=== PATIENT | male | born 1990 | race Caucasian/White ===

== ENCOUNTER 2017-03-03 16:12 | Emergency (ER) | payer BC ==
[~2017-03-03] VITALS: Ht 170.2 cm; Wt 56.7 kg
--- NOTE | 2017-03-03 17:14 | PHYS DOC ---
Past Medical History Past Medical History: Other Additional Past Medical Histor: ADDISONS AND HYPOGLYCEMIA Past Surgical History: Tonsillectomy, Other Additional Past Surgical Histo: CATARACT Alcohol Use: Occasionally Drug Use: None Adult General Chief Complaint Chief Complaint: DIZZY/LIGHT HEADED HPI HPI Patient is a 26 year old with history of Hulbert's disease and hypoglycemia who presents with generalized weakness and dizziness today while at work. Patient did not check his blood sugar, but states he frequently feels this way when his blood sugar was low. Patient's blood sugar 70 on ED arrival. Patient given lunch tray and apple juice. Patient states he now feels much better. He should is nondiabetic. No other symptoms or complaints. Review of Systems Review of Systems Review symptoms as per history of present illness. All other review symptoms are negative. Physical Exam Physical Exam Constitutional: Well developed, well nourished, no acute distress, non-toxic appearance. [] HENT: Normocephalic, atraumatic, bilateral external ears normal, oropharynx moist, no oral exudates, nose normal. [] Eyes: PERRLA, EOMI.[] Neck: Normal range of motion Lungs & Thorax: Bilateral breath sounds clear to auscultation [] Abdomen: Bowel sounds normal, soft, no tenderness, no masses, no pulsatile masses. [] Skin: Warm, dry, no erythema, no rash. [] Back: No tenderness, no CVA tenderness. [] Extremities: No tenderness, no cyanosis, no clubbing, ROM intact, no edema. [] Neurologic: Alert and oriented X 3, normal motor function, normal sensory function, no focal deficits noted. [] Psychologic: Affect normal, judgement normal, mood normal. [] Current Patient Data Vital Signs Vital Signs Date Time Temp Pulse Resp B/P (MAP) Pulse Ox O2 Delivery O2 Flow Rate FiO2 03/03/17 16:20 97.9 80 16 123/75 (91) 98 Room Air 97.9 Lab Values Laboratory Tests Test 03/03/17 16:36 Glucose (Fingerstick) 70 mg/dL (70-99) EKG EKG [] Radiology/Procedures Radiology/Procedures [] Course & Med Decision Making Course & Med Decision Making Pertinent Labs and Imaging studies reviewed. (See chart for details) [Patient symptomatically improved after eating.] Dragon Disclaimer Dragon Disclaimer This electronic medical record was generated, in whole or in part, using a voice recognition dictation system. Departure Departure Impression: Primary Impression: Hypoglycemia Disposition: 01 HOME, SELF-CARE Condition: STABLE Referrals: NON,STAFF (PCP) Patient Instructions: Hypoglycemia (Low Blood Sugar) Additional Instructions: Please eat regularly scheduled meals with carbohydrates and frequent snacks in between. Symptoms return, drink juice or eat a candy bar. Do not drive or for any other potentially dangerous activity when symptomatic. Follow-up with your PCP as needed. MISA SPEAR DO Mar 03, 2017 17:14
[2017-03-03 17:15] VITALS: BP 117/70
--- NOTE | 2017-03-04 11:01 | EKG ---
[facility] [address] [place] [address] Test Date: 2017-03-03 Test Time: 16:22:01 Pat Name: JEAN STEVENS Department: Room: Gender: M [employer]: : 1990 Requested By: MISA SPEAR Order Number: [id number] Reading MD: Salbador Silva Measurements Intervals [place] Rate: 76 P: 63 [place]: 196 QRS: 46 QRSD: 106 T: 36 QT: 362 QTc: 411 Interpretive Statements SINUS RHYTHM Electronically Signed On 03-06-2017 10:15:03 CDT by Salbador Silva
== END 2017-03-03 17:22 | disposition home or self-care (01) ==
LOC: ER 16:12
DX: E16.2 Hypoglycemia, unspecified (principal); E27.1 Primary adrenocortical insufficiency; Z98.49 Cataract extraction status, unspecified eye
CPT/HCPCS: 82962; 93005; 99285-25